=== PATIENT | male | born 1995 | race African-American/Black ===

== ENCOUNTER 2018-09-04 01:29 | Emergency (ER) | payer SELFPAY ==
[~2018-09-04 01:29] MED LIST: LORazepam 2 MG/ML VIAL IVP STA
[2018-09-04] MEDS ORDERED: ROCURONIUM BROMIDE 10 MG/ML 5ML VIAL IVP STA ×2 (01:35→02:20)
[2018-09-04] MEDS ORDERED: MIDAZOLAM HCL 5 MG/5 ML VIAL IVP STA (01:35)
--- NOTE | 2018-09-04 01:53 | ED Physician Documentation ---
General Adult - HISTORIAN Historian: patient - HPI Stated Complaint: unresponsive, ? seizure Chief Complaint: General Adult Onset: minutes Timing: still present Severity: severe Further Comments: yes (Pt is a 23 yo aa male with hx drug abuse, asthma, no other known PMHx, who was unresponsive and appeared to witnesses to be having a seizure. Pt was unresponsive but breathing when EMT's arrived and pt was given 3 mg Narcan. Pt then had generalized muscle tensing, and was aroused but not reponsive and was fighting EMT's with odd posturing and muscle tension and purposeless movements. Pt vomited x 1 [employer].) - ROS CONST: other (unable to give ROS) - PAST HX Past History: asthma, other (drub abuse) - SOCIAL HX Smoking History: other (unknown) Drug Use: marijuana, other (drug abuse NOS) - FAMILY HX Family History: No - REVIEWED ASSESSMENTS Nursing Assessment Reviewed: Yes Vitals Reviewed: Yes Progress - Progress Progress: Ativan 2 mg Pt unable to control secretions and was suctioned. Purposeless movements and muscle tensing/spasm. Versed 5 mg Rocuronium 60 mg IV RSI CXR showed ET tube 6.7 cm above the tex and tube was advanced 4 cm to 26 cm at the teeth. CXR otherwise neg. Pt was given an additional dose Rocuronium 10 mg IV prior to transfer. Unable to run ABG due to equipment problem. Transfer to [facility]. Dr. Pacheco General Adult Physical Exam - PHYSICAL EXAM GENERAL APPEARANCE: severe distress EENT: DANY NECK: normal inspection, supple RESPIRATORY: breath sounds normal CVS: tachycardia ABDOMEN: soft, no organomegaly, decreased BS BACK: normal inspection, no CVA tenderness SKIN: warm/dry, normal color EXTREMITIES: normal range of motion, no evidence of injury NEURO: other (unresponsive) Discharge Clincal Impression: Unresponsive, ? seizure, hx drug abuse Condition: Fair Disposition: XFER [facility] Decision to Admit: NO Decision Time: 02:12
--- NOTE | 2018-09-04 04:21 | Diagnostic Imaging Report ---
GAEL MCHUGH [facility] [address] [facility] [address] [address] Report Submission Date: Sep 04, 2018 2:55:28 AM DRUM CARRIER Patient Study Name: CODY ZAMORA Date: Sep 04, 2018 2:12:00 AM [employer]UM CAR[employer]ER Modality Type: DX Gender: M Description: CHEST 1 VIEW : 89 Institution: [facility] Physician: GAEL MCHUGH Ap portable radiograph of the chest Clinical history: Chest pain Technique: anterior /posterior portable Findings: The lung joseph are clear. The lung apices are excluded from the field of view. Endotracheal tube is 6.7 cm above the tex. The bony thorax is unremarkable. No pneumothorax or pleural effusion is seen. Impression: No acute pulmonary disease Endotracheal tube 6.7 cm above the tex Electronically signed on Sep 04, 2018 2:55:28 AM DRUM CARRIER by: George CAVAZOS
[2018-09-04 06:41] VITALS: BP 120/56
[2018-09-04 10:41] LABS: eGFR (Non-African) > 60
[2018-09-04 10:43] LABS: BASOPHILS % 0.7 (0.0-1.5); EOSINOPHILS % 1.2 % (0.0-6.8); MEAN CORPUSCULAR HEMOGLOBIN 28.3 pg (28.0-34.0); MONOCYTES % 5.9 % (0.0-11.0); NEUTROPHILS # 11.9 # k/uL (1.4-7.7)
[2018-09-12 09:21] LABS: ABG PH 7.4 (7.35-7.45)
[2018-09-12 09:22] LABS: ABG BASE EXCESS -7.5 (-2 - +2)
== END 2018-09-04 02:35 | disposition short-term general hospital (02) ==
LOC: ED 01:29
DX: R41.82 Altered mental status, unspecified (principal); F19.10 Other psychoactive substance abuse, uncomplicated
CPT/HCPCS: 31500; 36415; 36600; 71045; 80053; 82550; 82553; 82803; 84484; 85025; 96374; 96375; 96376; 99285; J2060; J2250